=== PATIENT | female | born 1970 | race Hispanic/Latino ===

== ENCOUNTER 2024-02-23 17:33 | Emergency (ER) | payer MEDICARE ==
[~2024-02-23] VITALS: Ht 157.5 cm; Wt 68.0 kg
[2024-02-23 17:35] VITALS: BP_DIAS 73
[2024-02-23 19:45] LABS: ADD UA MICROSCOPIC YES; APPEARANCE,URINE CLEAR (CLEAR); BILIRUBIN,URINE NEGATIVE (NEGATIVE); COLOR,URINE LIGHT-YELLOW (YELLOW); GLUCOSE, URINE (UA) NEGATIVE (NEGATIVE); KETONES,URINE NEGATIVE (NEGATIVE); LEUKOCYTE ESTERASE ,URINE 250 Leu/uL (NEGATIVE); NITRATE,URINE NEGATIVE (NEGATIVE); PROTEIN,URINE NEGATIVE (NEGATIVE); UROBILINOGEN,URINE 0.2 mg/dL (0.2-1.0)
[2024-02-23 19:48] LABS: BASOPHILS # (AUTO) 0.04 K/uL (0.00-0.20); BASOPHILS % (AUTO) 0.5 % (0.0-5.0); EOSINOPHILS # (AUTO) 0.16 K/uL (0.00-0.70); EOSINOPHILS % (AUTO) 1.9 % (0.0-8.0); HEMATOCRIT 39.8 % (36-48); IMMATURE GRANULOCYTE ABSOLUTE 0.03 K/uL (0-1); LYMPHOCYTES # (AUTO) 2.7 K/uL (1.0-4.8); LYMPHOCYTES % (AUTO) 32.3 % (21.0-51.0); MEAN CORPUSCULAR HEMOGLOBIN 28.7 pg (27.0-33.0); MEAN CORPUSCULAR HGB CONC 31.9 g/dL (32.0-36.0); MEAN CORPUSCULAR VOLUME 89.8 fL (79-99); MONOCYTES # (AUTO) 0.5 K/uL (0.1-1.0); MONOCYTES % (AUTO) 5.5 % (3.0-13.0); NEUTROPHILS % (AUTO) 59.4 % (40.0-77.0); PLATELET COUNT (AUTO) 246 K/uL (130-400); RED BLOOD CELL COUNT(AUTO) 4.43 MIL/uL (4.00-5.50); RED CELL DISTRIBUTION WIDTH 13.2 % (11.0-15.5); WHITE BLOOD COUNT (AUTO) 8.4 K/uL (4.8-10.8)
[2024-02-23 19:59] LABS: CREATININE 0.6 mg/dL (0.5-1.0)
[2024-02-23 20:09] LABS: BACTERIA,URINE FEW /HPF (None Seen); MUCUS,URINE RARE LPF (None Seen); SQUAMOUS EPITHELIAL CELL,UR FEW /HPF (0-2)
--- NOTE | 2024-02-23 21:40 | NUR ---
CT CONSENT SIGNED BY PATIENT
[2024-02-23] MEDS: cefTRIAXone 1G VIAL IVPB STA (21:41)
[2024-02-23] MEDS ORDERED: IOHEXOL 350 MG/ML 100ML INFUS..BTL IV ONE (22:19)
--- NOTE | 2024-02-23 22:57 | HMCIMG ---
CT ABDOMEN/PELVIS W/CONTRAST HISTORY: Abdominal pain COMPARISON: 03/05/2008 TECHNIQUE: Multiple sequential axial images of the abdomen and pelvis were obtained from the dome of the diaphragm through symphysis pubis. Patient was given 100 cc of Isovue through intravenous route. Oral contrast was not given. FINDINGS: No pleural effusion is seen bilaterally. There is no evidence of parenchymal disease or pulmonary nodule of the visualized lower lungs. Degenerative changes of the thoracolumbar spine are present. The heart is not enlarged. Liver is enlarged with fatty changes measuring 18 cm. Postcholecystectomy changes are seen. There are small hepatic cysts with the largest in the right hepatic lobe measuring 10 mm. Pancreas is prominent. If there is clinical suspicion for pancreatitis, lipase correlation may be helpful. The liver, spleen, adrenal glands and pancreas are unremarkable. There is no evidence of hydronephrosis bilaterally. No evidence of renal stone is seen. There is mild diverticulosis. Fecal material is seen in the colon. There are normal size retroperitoneal and mesenteric lymph nodes. No ascites is seen. Appendix is not well seen limiting evaluation. Uterus is not seen. Pelvic sidewalls are symmetric bilaterally. Bladder is well distended without wall thickening. IMPRESSION: 1. Pancreas prominent and clinical correlation is recommended. Mild diverticulosis. Fecal material in the colon. CT was performed with one or more following dose reduction techniques: automated exposure control, adjustment of the mA and kv according to patient's size, or use of a iterative reconstruction technique.
[2024-02-23] MEDS: morPHINE 2 MG SYG IVP STA (23:29)
[2024-02-23] MEDS: ondanSETRON 4MG INJ IVP STA (23:32)
[2024-02-23 23:42] LABS: ALBUMIN 3.9 g/dL (3.5-5.0); BILIRUBIN,DIRECT 0.1 mg/dL (0.0-0.3); BILIRUBIN,TOTAL 0.4 mg/dL (0.2-1.0); TOTAL PROTEIN, SERUM 7.8 g/dL (6.0-8.3)
[2024-02-24] MEDS ORDERED: CEPH500B PO (00:48)
--- NOTE | 2024-02-24 00:48 | ERN ---
ED Note History of Present Illness Stated Complaint: LOWER ABP PAIN, FEVER Chief Complaint: Abdominal Pain Time Seen by MD: 17:39 Time Seen by Midlevel: 17:44 Dictation: 53-year-old female with a history of seizures coming in complaining of lower abdominal pain that started . Patient states she had a colonoscopy and EGD done on Friday and when she called the office until the bilateral her complaining they told her to come to the ER and be evaluated. Patient denies having any blood in stool or any fever, nausea, vomiting. Surgical history of a hysterectomy, appendectomy, cholecystectomy. Allergies: Coded Allergies: levetiracetam (Unverified Allergy, Unknown, 02/23/24) lisinopril (Unverified Allergy, Unknown, 02/23/24) meperidine (Unverified Allergy, Unknown, 02/23/24) prochlorperazine (Unverified Allergy, Unknown, 02/23/24) promethazine (Unverified Allergy, Unknown, 02/23/24) Past Medical History Past Medical History: Arthritis, Asthma, Fibromyalgia, Heart Disease, Hypertension, Kidney Infection, Kidney Stone, Seizure Additional Past Medical Hx: CHRONIC ABD PAIN, CHRONIC COUGH, INCONTINENCE Surgical History: Appendectomy, Hysterectomy, Cholecystectomy, CABG, BTL Surgical History Other: HEMMRHOID BAND Review of System Dictation Constitutional: Negative for fever,chills, and weight loss Eyes: Negative for injury, pain,redness, and discharge ENT: Negative for injury,pain or swelling Cardiovascular: Negative for chest pain, palpitations, and edema Respiratory: Negative for shortness of breath, cough, and wheezing, Abdomen/GI: Positive for lower abdominal pain, no nausea, no vomiting, no diarrhea, and no constipation Back: Negative for injury and pain : Negative for injury, bleeding and discharge MS/Extremity: Negative for injury and deformity Skin: Negative for rash, and discoloration Neuro: Negative for headache, weakness, numbness, tingling, and seizure Psych: Negative for suicide ideation, homicidal ideation, and hallucinations Review of Systems: was completed Initial Vital Sign VS Vital Signs Date Time Temp Pulse Resp B/P (MAP) Pulse Ox O2 Delivery O2 Flow Rate FiO2 02/23/24 17:35 98.1 91 16 137/73 99 Room Air 0 Physical Exam Dictation General: awake, alert, NAD Head/Face: Normocephalic, atraumatic Eyes: PERRL, EOMI, vision at baseline ENT: oral cavity clear, TMs clear, no signs of infection Neck: Trachea midline, supple, no nuchal rigidity Cardiovascular: RRR, normal S1/S2, No MRGs, no JVD Respiratory: CTAB, no respiratory distress, No rales or wheezes Abdomen: Soft, non-tender, non-distended, normal bowel sounds, no guarding or rebound. Skin: Warm, dry, normal turgor, no rash MS/Extremity: Pulses equal, no cyanosis, neurovascular intact, FROM Neuro: COAx4, GCS 15, strength 5/5, CN 2-12 intact, normal cerebellar exam, normal gait, Psych: Normal behavior, mood, and affect normal Results (Laboratory/Radiology) Laboratory/Radiology Laboratory Tests Test 02/23/24 19:34 02/23/24 19:42 Urine Color LIGHT-YELLOW (YELLOW) Urine Appearance CLEAR (CLEAR) Urine pH 7.0 (5.0-8.0) Urine Specific [place] 1.021 (1.001-1.031) Urine Protein NEGATIVE mg/dL (NEGATIVE) Urine Glucose (UA) NEGATIVE mg/dL (NEGATIVE) Urine Ketones NEGATIVE mg/dL (NEGATIVE) Urine Occult Blood +- (TRACE) (NEGATIVE) H Urine Nitrate NEGATIVE (NEGATIVE) Urine Bilirubin NEGATIVE mg/dL (NEGATIVE) Urine Urobilinogen 0.2 mg/dL (0.2-1.0) Urine Leukocyte Esterase 250 Manuela/uL (NEGATIVE) H Urine RBC 11-25 /HPF (0-1) H Urine WBC 2-5 /HPF (0-1) H Urine Squamous Epithelial Cells FEW /HPF (0-2) Urine Bacteria FEW /HPF (None Seen) White Blood Count 8.4 K/uL (4.8-10.8) Red Blood Count 4.43 MIL/uL (4.00-5.50) Hemoglobin 12.7 g/dL (12.0-16.0) Hematocrit 39.8 % (36-48) Mean Corpuscular Volume 89.8 fL (79-99) Mean Corpuscular Hemoglobin 28.7 pg (27.0-33.0) Mean Corpuscular Hemoglobin Concent 31.9 g/dL (32.0-36.0) L Red Cell Distribution Width 13.2 % (11.0-15.5) Platelet Count 246 K/uL (130-400) Mean Platelet Volume 9.9 fL (7.5-10.5) Immature Granulocyte % (Auto) 0.4 % (0-1) Neutrophils (%) (Auto) 59.4 % (40.0-77.0) Lymphocytes (%) (Auto) 32.3 % (21.0-51.0) Monocytes (%) (Auto) 5.5 % (3.0-13.0) Eosinophils (%) (Auto) 1.9 % (0.0-8.0) Basophils (%) (Auto) 0.5 % (0.0-5.0) Neutrophils # (Auto) 5.0 K/uL (1.8-7.7) Lymphocytes # (Auto) 2.7 K/uL (1.0-4.8) Monocytes # (Auto) 0.5 K/uL (0.1-1.0) Eosinophils # (Auto) 0.16 K/uL (0.00-0.70) Basophils # (Auto) 0.04 K/uL (0.00-0.20) Absolute Immature Granulocyte (auto 0.03 K/uL (0-1) Nucleated Red Blood Cells 0.0 % (0.0-0.19) Sodium Level 145 mmol/L (136-145) Potassium Level 4.0 mmol/L (3.5-5.1) Chloride Level 110 mmol/L (101-111) Carbon Dioxide Level 28 mmol/L (21-32) Blood Urea Nitrogen 24 mg/dL (7-18) H Creatinine 0.6 mg/dL (0.5-1.0) Glomerular Filtration Rate Calc 109 mL/min (>90) Random Glucose 100 mg/dL (70-105) Total Calcium 9.4 mg/dL (8.5-10.1) Total Bilirubin 0.4 mg/dL (0.2-1.0) Direct Bilirubin 0.1 mg/dL (0.0-0.3) Aspartate Amino Transf (AST/SGOT) 13 U/L (10-37) Alanine Aminotransferase (ALT/SGPT) 19 U/L (12-78) Alkaline Phosphatase 104 U/L (50-136) Total Protein 7.8 g/dL (6.0-8.3) Albumin 3.9 g/dL (3.5-5.0) Lipase 36 U/L (16-77) Labs Reviewed?: Yes CT Scan Comment: [facility] [address] [place], [place] [id number] IMAGING REPORT Signed PATIENT: TERRI CUEVAS MR#: [id number] : 1970 SEX: F AGE: 53 LOCATION: [facility] ORDER 20 STATUS: REG ER REPORT#: [id number] SERVICE 18 REASON: abd pain/ recent colonoscopy ORDERING PHYSICIAN: ANITA SMALLWOOD NP PROCEDURE: ABD PEL W - CT ABDOMEN/PELVIS W/CONTRAST CT ABDOMEN/PELVIS W/CONTRAST HISTORY: Abdominal pain COMPARISON: 03/05/2008 TECHNIQUE: Multiple sequential axial images of the abdomen and pelvis were obtained from the dome of the diaphragm through symphysis pubis. Patient was given 100 cc of Isovue through intravenous route. Oral contrast was not given. FINDINGS: No pleural effusion is seen bilaterally. There is no evidence of parenchymal disease or pulmonary nodule of the visualized lower lungs. Degenerative changes of the thoracolumbar spine are present. The heart is not enlarged. Liver is enlarged with fatty changes measuring 18 cm. Postcholecystectomy changes are seen. There are small hepatic cysts with the largest in the right hepatic lobe measuring 10 mm. Pancreas is prominent. If there is clinical suspicion for pancreatitis, lipase correlation may be helpful. The liver, spleen, adrenal glands and pancreas are unremarkable. There is no evidence of hydronephrosis bilaterally. No evidence of renal stone is seen. There is mild diverticulosis. Fecal material is seen in the colon. There are normal size retroperitoneal and mesenteric lymph nodes. No ascites is seen. Appendix is not well seen limiting evaluation. Uterus is not seen. Pelvic sidewalls are symmetric bilaterally. Bladder is well distended without wall thickening. IMPRESSION: 1. Pancreas prominent and clinical correlation is recommended. Mild diverticulosis. Fecal material in the colon. CT was performed with one or more following dose reduction techniques: automated exposure control, adjustment of the mA and kv according to patient's size, or use of a iterative reconstruction technique. DICTATED BY: ZENA CADROSO MD DATE: 02/23/242248 ELECTRONICALLY SIGNED BY: ZENA CARDOSO MD DATE: 02/23/242256 ED Course ED Course Orders Procedure Category Date Status Time Cbc With Differential LAB 02/23/24 Complete 19:19 Basic Metabolic Panel LAB 02/23/24 Complete 19:19 Urinalysis Profile LAB 02/23/24 Complete 19:19 Ct Abdomen/Pelvis CT 02/23/24 Resulted W/Contrast 19:19 Culture Urine PARVIZ 02/23/24 In Process 19:46 Ceftriaxone 1g Vial PHA 02/23/24 Complete (Rocephine 1g Inj) 20:21 Morphine 2mg Syg PHA 02/23/24 Complete (Morphine 2mg Syg) 22:19 Ondansetron 4mg Inj PHA 02/23/24 Complete (Zofran 4mg Inj) 22:19 Iohexol (Omnipaque) PHA 02/23/24 Complete 22:19 Hepatic Function Panel LAB 02/23/24 Complete 23:10 Lipase LAB 02/23/24 Complete 23:56 Current Medications Medications (Trade) Dose Ordered Sig/Ced Route PRN Reason Start Time Stop Time Status Last Admin Dose Admin Ceftriaxone Sodium (ROCEphine 1G INJ) 1 gm ONCE STAT IVPB 02/23/24 20:21 02/23/24 20:24 DC 02/23/24 21:41 Iohexol (Omnipaque) 35,000 mg STK-MED ONCE IV 02/23/24 22:19 02/23/24 22:24 DC Morphine Sulfate (morPHINE 2MG SYG) 2 mg ONCE STAT IVP 02/23/24 22:19 02/23/24 22:20 DC 02/23/24 23:29 Ondansetron HCl (zoFRAN 4MG INJ) 4 mg ONCE STAT IVP 02/23/24 22:19 02/23/24 22:20 DC Vital Signs Date Time Temp Pulse Resp B/P (MAP) Pulse Ox O2 Delivery O2 Flow Rate FiO2 02/23/24 17:35 98.1 91 16 137/73 99 Room Air 0 Medical Decision Making MDM MDM: 53-year-old female with a history of seizures coming in complaining of lower abdominal pain that started . Patient states she had a colonoscopy and EGD done on Friday and when she called the office until the bilateral her complaining they told her to come to the ER and be evaluated. Patient denies having any blood in stool or any fever, nausea, vomiting. Surgical history of a hysterectomy, appendectomy, cholecystectomy.A CBC shows no leukocytosis, no anemia, no thrombocytopenia. Chemistry shows no electrolyte abnormality. Normal kidney function. No transaminitis, T bili and lipase within normal range. UA shows evidence of urinary tract infection, gave Rocephin 1 g here in the ER. A CT scan of the abdomen shows a prominent pancreas and fecal material in the colon. Patient does not have any epigastric pain and her lipase is normal, less likely to be pancreatitis. We will discharge patient with antibiotics for her urinary tract infection and have patient follow up with her PCP. Discussed findings with patient, educated when to return back to the ER, patient verbalized understanding, answered all questions. Differential diagnosis: Perforation, urinary tract infection, pyelonephritis, abscess Rationale: Tests considered and ordered secondary to shared decision making include: Previous outside records reviewed: Old ER visits. Risk of complication and/or morbidity or mortality of patient management: None Medications-Per medication reconciliation Need for hospitalization: Patient does not meet criteria for hospitalization. Need for emergency major/minor surgery: No There are no social concerns with this patient. Prescription drug management Prescriptions will include symptomatic care Patient's prior external medical records from other ER visits were reviewed by me as indicated. Prior testing and results from previous visits were reviewed. Prior tests were taken into account with medical decision making and resource utilization, independent historian/historians were used to obtain complete medical history. I independently interpreted the test that were performed, results were reviewed by me and considered findings on radiology if ordered. Medical management and examination interpretation discussions were had by me with other qualified healthcare professionals as indicated for the patient's care. DX & DISP Disposition: Discharge Departure Impression: Primary Impression: Urinary tract infection Condition: Stable Scripts Cephalexin Monohydrate (Keflex) 500 Mg Cap 500 MG PO QID for 7 Days, #28 CAP Prov: ANITA SMALLWOOD [employer] 02/24/24 Additional Instructions: Please follow up with your primary care provider in 1-2 days, return to the ER if symptoms worsen. Complete the dose of antibiotics and you can take Tylenol or Motrin [id number] for pain management. Referrals: ALMA GREENE (PCP) Time of Disposition: 00:47 I have reviewed the case, and I agree with, Diagnosis and Plan ANITA SMALLWOOD NP Feb 24, 2024 00:48
[2024-02-24 02:25] VITALS: BP_SYST 72; PULSE 88; RESP 18; TEMP 98.2; O2SAT 99
== END 2024-02-24 01:29 | disposition home or self-care (01) ==
LOC: EDH 17:33
DX: N39.0 Urinary tract infection, site not specified (principal); M19.90 Unspecified osteoarthritis, unspecified site; M79.7 Fibromyalgia; I11.9 Hypertensive heart disease without heart failure; J45.909 Unspecified asthma, uncomplicated; Z88.5 Allergy status to narcotic agent; Z88.8 Allergy status to other drugs, medicaments and biological substances; Z90.49 Acquired absence of other specified parts of digestive tract; Z90.710 Acquired absence of both cervix and uterus; Z95.1 Presence of aortocoronary bypass graft; Z98.890 Other specified postprocedural states
CPT/HCPCS: 99285; 74177; 96374; 96375; 80076; 80048; 83690; 85025; 87086 ×2; 87186; 81001; 36415; J2270; J0696; Q9967; J2405